=== PATIENT | female | born 1990 | race Caucasian/White ===

== ENCOUNTER 2022-05-03 09:11 | Emergency (ER) | payer OTHER ==
[2022-05-03] MEDS ORDERED: CLINDAMYCIN 600MG PREMIX IVPB 600 MG/50 ML BAG IVPB ONE ×2 (09:55→10:01)
[2022-05-03] MEDS ORDERED: SODIUM CHLORIDE 1,000 ML IV STA (09:55)
[2022-05-03 10:34] VITALS: RESP 18
[2022-05-03 11:08] LABS: ALBUMIN 3.7 g/dl (3.4-5.0); BILIRUBIN,TOTAL 0.4 mg/dl (0.2-1); CALCIUM 8.8 mg/dl (8.5-10); CREATININE 0.7 mg/dl (0.55-1.3); TOT PROT 7.3 g/dl (6.4-8.2)
[2022-05-03 11:52] LABS: HEMATOCRIT 39.5 % (32.4-45.2); RBC 4.41 M/mm3 (3.60-5.2)
[2022-05-03 11:57] LABS: BASO % 0.3 % (0-2.0); HEMOGLOBIN 13.2 GM/dL (10.7-15.3); LYMPH % 13.9 % (8-40); MCH 29.9 pg (25.7-33.7); MCHC 33.4 g/dl (32.0-36.0); MEAN CELL VOLUME 89.5 fl (80-96); MEAN PLT VOLUME 8.9 fl (7.5-11.1); MONO % 12.1 % (3.8-10.2); NEUT % 73.7 % (42.8-82.8); PLATELET COUNT 198 10^3/uL (134-434); RDW 14.4 % (11.6-15.6)
[2022-05-03 12:19] VITALS: BP 122/70; PULSE 86; TEMP 98.9
== END 2022-05-03 12:29 | disposition home or self-care (01) ==
LOC: FER 09:11
PROC: 3E033GC Introduction of Other Therapeutic Substance into Peripheral Vein, Percutaneous Approach (ICD-10-PCS; principal; 2022-05-03)
PROC: 3E0337Z Introduction of Electrolytic and Water Balance Substance into Peripheral Vein, Percutaneous Approach (ICD-10-PCS; 2022-05-03)
DX: L03.112 Cellulitis of left axilla (principal)
CPT/HCPCS: 36415; 80053; 85025; 87040; 99284-25

== ENCOUNTER 2022-10-18 12:55 | Emergency (ER) | payer OTHER ==
[2022-10-18 13:19] VITALS: BP 102/59; PULSE 64; RESP 20; TEMP 98.6; BMI 30.2
== END 2022-10-18 14:45 | disposition home or self-care (01) ==
LOC: FER 12:55
DX: O26.891 Other specified pregnancy related conditions, first trimester (principal); R10.2 Pelvic and perineal pain; Z3A.01 Less than 8 weeks gestation of pregnancy
CPT/HCPCS: 99283-25

== ENCOUNTER 2023-06-03 09:58 | Emergency (ER) | payer OTHER ==
[2023-06-03 10:15] VITALS: BP 121/77; PULSE 72; RESP 20; TEMP 98.7; BMI 29.8
[2023-06-03] MEDS ORDERED: AMOX TR/POT CLAV 875MG/125MG TABLETS (FP) ONE (11:26)
[2023-06-03] MEDS: AMOX TR/POT CLAV 875MG/125MG TABLETS (FP) PO ONE (11:27)
== END 2023-06-03 11:28 | disposition home or self-care (01) ==
LOC: FER 09:58
DX: H65.192 Other acute nonsuppurative otitis media, left ear (principal); H92.02 Otalgia, left ear; R68.83 Chills (without fever)
CPT/HCPCS: 99283-25